=== PATIENT | male | born 1975 | race Caucasian/White ===

== ENCOUNTER 2016-08-27 04:47 | Emergency (ER) | payer BC ==
[~2016-08-27] VITALS: Ht 185.4 cm; Wt 95.5 kg
[2016-08-27 04:54] VITALS: TEMP 36.5; Ht 185.4 cm; Wt 95.5 kg
[2016-08-27] MEDS ORDERED: FENTANYL CITRATE INJ 50 MCG/1 ML 2 ML VIAL IV STA (05:05)
[2016-08-27] MEDS ORDERED: CALC500C50 PO (05:08)
--- NOTE | 2016-08-27 05:08 | EMERGENCY ROOM VISIT NOTE ---
History Report prepared by Chantel: Sonia Marsh Under the Supervision of: Dr. Hillary Woods D.O. First contact with patient: 04:54 Chief Complaint: ABDOMINAL PAIN Stated Complaint: HERNIA History of Present Illness The patient is a 41 year old male who presents to the Emergency Room with complaints of worsening abdominal pain beginning a few hours prior to arrival. The patient states that for the past few years he has had a hernia at his belly button. He states that he has never had an issue with the hernia. Tonight he had a coughing attack and after that he began to have abdominal pain. He notes tightness and an impacted feeling began. The patient denies any recent strenuous activity these past few days. The patient states that on occasion in the past he would have pain at the hernia site but it would quickly resolve and was not this painful. The patient has been having normal urinary symptoms. He notes trouble moving his bowels. Source of History: patient Onset: few hours HR INTERN Position: abdomen Timing: worsening Associated Symptoms: + cough, No urinary symptoms Note: The patient is experiencing trouble moving his bowels. Review of Systems See HPI for pertinent positives & negatives. A total of 10 systems reviewed and were otherwise negative. Past Medical & Surgical Medical Problems: (1) Hernia Family History Patient reports no known family medical history. Social History Alcohol Use: none Marital Status: in relationship Housing Status: lives with significant other Occupation Status: employed Current/Historical Medications Scheduled PRN Calcium Carbonate (Antacid) (Tums), 1 DOSE PO DIRECTED PRN for Indigestion Allergies Coded Allergies: No Known Allergies (Unverified , 08/27/16) Physical Exam Vital Signs Date Time Temp Pulse Resp B/P (MAP) Pulse Ox O2 Delivery O2 Flow Rate FiO2 08/27/16 06:04 78 18 140/72 94 08/27/16 04:54 36.5 85 20 154/99 92 Room Air Physical Exam General: Very uncomfortable appearing. Increased pain with any slight movement of abdomen. HEENT: Head - normocephalic and atraumatic Pupils are equal, round, and reactive to light. Extraocular eye muscles are intact, and sclera are anicteric. Nose - moist nasal mucosa without discharge. Mouth - moist buccal mucosa. Oropharynx is nonerythematous and there is no tonsillar exudate or edema noted. Neck: Supple; no JVD, nuchal rigidity, cervical lymphadenopathy. Heart: Tachycardic rate and regular rhythm. There is a normal S1 and S2 with no murmurs, clicks, or gallops appreciated. Lungs: Clear to auscultation bilaterally with no wheezes, rales, or rhonchi. Abdomen: Exquisite tenderness to the superior aspect of the umbilicus with obvious incarcerated hernia. Moderate guarding and rigidity just to the right of the umbilicus and right lower quadrant of the abdomen. Extremities: No evidence of cyanosis, clubbing, or edema. There are easily palpable peripheral pulses. Skin: warm and dry with good turgor and no rashes. Medical Decision & Procedures Laboratory Results 08/27/16 05:05 Red Blood Count 5.27, Mean Corpuscular Volume 89.8, Mean Corpuscular Hemoglobin 31.7, Mean Corpuscular Hemoglobin Concent 35.3, Mean Platelet Volume 11.1, Neutrophils (%) (Auto) 73.6, Lymphocytes (%) (Auto) 16.4, Monocytes (%) (Auto) 7.9, Eosinophils (%) (Auto) 1.4, Basophils (%) (Auto) 0.5, Neutrophils # (Auto) 6.70, Lymphocytes # (Auto) 1.49, Monocytes # (Auto) 0.72, Eosinophils # (Auto) 0.13, Basophils # (Auto) 0.05 08/27/16 05:05 Test 08/27/16 05:05 08/27/16 05:16 White Blood Count 9.11 K/uL (4.8-10.8) Red Blood Count 5.27 M/uL (4.7-6.1) Hemoglobin 16.7 g/dL (14.0-18.0) Hematocrit 47.3 % (42-52) Mean Corpuscular Volume 89.8 fL (80-100) Mean Corpuscular Hemoglobin 31.7 pg (25-34) Mean Corpuscular Hemoglobin Concent 35.3 g/dl (32-36) Platelet Count 204 K/uL (130-400) Mean Platelet Volume 11.1 fL (7.4-10.4) Neutrophils (%) (Auto) 73.6 % Lymphocytes (%) (Auto) 16.4 % Monocytes (%) (Auto) 7.9 % Eosinophils (%) (Auto) 1.4 % Basophils (%) (Auto) 0.5 % Neutrophils # (Auto) 6.70 K/uL (1.4-6.5) Lymphocytes # (Auto) 1.49 K/uL (1.2-3.4) Monocytes # (Auto) 0.72 K/uL (0.11-0.59) Eosinophils # (Auto) 0.13 K/uL (0-0.5) Basophils # (Auto) 0.05 K/uL (0-0.2) RDW Standard Deviation 43.1 fL (36.4-46.3) RDW Coefficient of Variation 13.2 % (11.5-14.5) Immature Granulocyte % (Auto) 0.2 % Immature Granulocyte # (Auto) 0.02 K/uL (0.00-0.02) Anion Gap 5.0 mmol/L (3-11) Est Creatinine Clear Calc Drug Dose 137.0 ml/min Estimated GFR () 128.8 Estimated GFR (Non- 111.2 BUN/Creatinine Ratio 16.4 (10-20) Calcium Level 9.0 mg/dl (8.5-10.1) Total Bilirubin 0.5 mg/dl (0.2-1) Direct Bilirubin < 0.1 mg/dl (0-0.2) Aspartate Amino Transf (AST/SGOT) 22 U/L (15-37) Alanine Aminotransferase (ALT/SGPT) 33 U/L (12-78) Alkaline Phosphatase 92 U/L (45-117) Total Protein 7.6 gm/dl (6.4-8.2) Albumin 4.3 gm/dl (3.4-5.0) Bedside Lactic Acid Venous 1.27 mmol/L (0.90-1.70) Laboratory results per my review. Medications Administered Medications (Trade) Dose Ordered Sig/Candy Route Start Time Stop Time Status Last Admin Dose Admin Fentanyl Citrate (Fentanyl Inj) 100 mcg NOW STAT IV 08/27/16 05:05 08/27/16 05:06 DC 08/27/16 05:12 100 MCG Procedure Medication ordered: Fentanyl Inj 100 mcg IV. ED Course 0455: Past medical records reviewed. The patient was evaluated in room B12. A complete history and physical exam was performed. An IV lock was initiated and labs are drawn as above. Lactic acid was obtained. 0505: Fentanyl Inj 100 mcg IV. 0524: The patient has complete resolution of his pain. The hernia has reduced itself. 0547: I reevaluated the patient and he is still comfortable. Instructed the patient on follow up with surgery and the importance of avoiding constipation. I also instructed him to hold his fist over his umbilicus when he has to cough or sneeze. 0556: Upon reevaluation, the patient is hemodynamically stable. I discussed findings and results with him. He verbalized agreement of the treatment plan. He was discharged home. Medical Decision The patient is a 41 year old male who presents to the ED with abdominal pain. Differential diagnosis includes small bowel obstruction, incarcerated hernia. Lab findings showed: no leukocytes, normal H&H, normal renal function and LFT. glucose 115, lactic acid 1.27. Blood Pressure Screening: Patient was found to have a slightly elevated blood pressure due to circumstances. I do not believe that the patient requires hypertension monitoring. The patient has had a long-standing umbilical hernia after an episode of coughing, the patient had severe pain noted in the abdomen around the umbilicus. On physical exam, the patient had evidence of an incarcerated umbilical hernia. The patient received 100 g of IV fentanyl and the hernia reduced itself. The patient is currently symptom-free. I have instructed him on how to avoid recurrent incarceration. I've also instructed him to follow up with general surgery for evaluation and elective repair. Impression Primary Impression: Incarcerated umbilical hernia Scribe Attestation The scribe's documentation has been prepared under my direction and personally reviewed by me in its entirety. I confirm that the note above accurately reflects all work, treatment, procedures, and medical decision making performed by me. Departure Information Dispostion Home / Self-Care Referrals No Doctor, Assigned (PCP) Patient Instructions My [facility]
[2016-08-27 05:21] LABS: BASO % 0.5 %; BASO ABS # 0.05 K/uL (0-0.2); COMPLETE YES; EOS % 1.4 %; HEMATOCRIT 47.3 % (42-52); IG% 0.2 %; LYMPH % 16.4 %; LYMPH ABS # 1.49 K/uL (1.2-3.4); MEAN CELL VOLUME 89.8 fL (80-100); MEAN CORPUSCULAR HEMOGLOBIN 31.7 pg (25-34); MEAN CORPUSCULAR HGB CONC 35.3 g/dl (32-36); MEAN PLATELET VOLUME 11.1 fL (7.4-10.4); MONO % 7.9 %; NEUT % 73.6 %; PLATELET COUNT 204 K/uL (130-400); RED BLOOD COUNT 5.27 M/uL (4.7-6.1); WHITE BLOOD COUNT 9.11 K/uL (4.8-10.8)
[2016-08-27 05:38] LABS: ALT/SGPT 33 U/L (12-78); AST/SGOT 22 U/L (15-37); BLOOD UREA NITROGEN 13 mg/dl (7-18); BUN/CREATININE RATIO 16.4 (10-20); CARBON DIOXIDE 28 mmol/L (21-32); CHLORIDE 109 mmol/L (98-107); CREATININE 0.81 mg/dl (0.60-1.40); GLUCOSE 115 mg/dl (70-99); POTASSIUM 4.1 mmol/L (3.5-5.1); SODIUM 142 mmol/L (136-145)
[2016-08-27 05:41] LABS: ALKALINE PHOSPHATASE 92 U/L (45-117)
[2016-08-27 06:04] VITALS: BP 140/72; PULSE 78; O2SAT 94
[2016-09-07] MEDS ORDERED: SENNTAB23 PO (13:49)
[2016-09-08] MEDS ORDERED: OXYC-57 PO (10:09)
== END 2016-08-27 06:05 | disposition home or self-care (01) ==
LOC: C.EDB 04:48
DX: K42.0 Umbilical hernia with obstruction, without gangrene (principal)

== ENCOUNTER 2016-09-08 07:02 | Day surgery (SDC) | payer BC ==
[2016-09-07 13:49] VITALS: BMI 28.0
[~2016-09-08] VITALS: Ht 185.4 cm; Wt 97.3 kg
[~2016-09-08 07:02] MED LIST: CEFAZOLIN 2000 MG/60 ML D5W IV SCH; LACTATED RINGER'S 1000ML 1,000 ML IV SCH; SENNTAB23 PO
[2016-09-08] MEDS ORDERED: MIDAZOLAM HCL 1 MG/ML 2ML VIAL ONE (07:06)
[2016-09-08 07:33] VITALS: BP 134/86; PULSE 70; TEMP 36.5; O2SAT 95; Ht 185.4 cm; Wt 97.3 kg
[2016-09-08] MEDS ORDERED: FENTANYL CITRATE INJ 50 MCG/1 ML 2 ML VIAL ONE (07:44)
[2016-09-08] MEDS ORDERED: ALBUTEROL 0.083% NEBU SOLN 3 ML VIAL INH STA (08:16)
--- NOTE | 2016-09-08 08:41 | History & Physical Bridge Note ---
H&P Re-Evaluation Bridge Note: I have examined the patient, reviewed the History & Physical and in the interval since the performance of the History & Physical I have noted the following changes of clinical significance: No changes noted
[2016-09-08] MEDS ORDERED: BUPIVACAINE 0.5 % 5 MG/1 ML MPF 30ML VIAL ONE (08:50)
[2016-09-08] MEDS ORDERED: BACITRACIN OINT 15 GM TUBE ONE (08:50)
[2016-09-08] MEDS ORDERED: LIDOCAINE HCL 1% 20 ML VIAL ONE (08:50)
[2016-09-08] MEDS ORDERED: LIDOCAINE HCL 2% 2 ML VIAL (20MG/ML) ONE (09:36)
[2016-09-08] MEDS ORDERED: PROPOFOL IV EMULSION 10 MG/ML 20 ML VIAL IV ONE (09:36)
[2016-09-08] MEDS ORDERED: GLYCOPYRROLATE INJ 0.2 MG/ML VIAL ONE ×2 (09:36→09:45)
[2016-09-08] MEDS ORDERED: ONDANSETRON INJ 2 MG/ML 2 ML VIAL ONE (09:36)
[2016-09-08] MEDS ORDERED: NEOSTIGMINE METHYLSULFATE 5 MG/5 ML SYR ONE (09:36)
[2016-09-08] MEDS ORDERED: DEXAMETHASONE SOD INJ 4 MG/ML VIAL ONE (09:36)
[2016-09-08] MEDS ORDERED: SUCCINYLCHOLINE 100MG/5ML SYR IV ONE (09:36)
[2016-09-08] MEDS ORDERED: ROCURONIUM BROMIDE 10 MG/ML 5 ML VIAL ONE (09:37)
[2016-09-08] MEDS ORDERED: LARYING-O-JET KIT (LTA) ONE ×2 (09:37)
[2016-09-08] MEDS ORDERED: SODIUM CHLORIDE 0.9% 1000ML 1,000 ML IV SCH (10:06)
--- NOTE | 2016-09-08 10:06 | [facility] Post Operative Brief Note ---
Immediate Operative Summary Operative Date Sep 08, 2016. Pre-Operative Diagnosis Incarcerated Umbilical Hernia Post-Operative Diagnosis Same as preoperative diagnosis. Procedure(s) Performed Umbilical hernia repair. Surgeon Dr. Murillo [employer] Surgeon(s) Dr. Gama Estimated Blood Loss 5ml Findings incarcerated umbilical hernia, the hernia neck size is 0.8cm x0.8cm, Fluids (cc crystalloids) 500ml Specimens A. Umbilical hernia sac Drains none Anesthesia general Complication(s) None Disposition Recovery Room / PACU
[2016-09-08] MEDS ORDERED: OXYC-57 PO (10:09)
--- NOTE | 2016-09-08 10:12 | Discharge Instructions ---
Discharge Instructions Date of Service Sep 08, 2016. Visit Reason for Visit: Umbilical Hernia Discharge Discharge Diagnosis / Problem: S/P open repair umbilical hernia Discharge Goals Goal(s): Decrease discomfort, Improve function Activity Recommendations Activity Limitations: per Instructions/Follow-up section Lifting Limitations: no more than 25 pounds Exercise/Sports Limitations: gradually increase as tolerated May Resume Sexual Activity: when tolerated Shower/Bathe: may shower/bathe in 3 days Driving or Machine Use: resume 3 days after discharge Anesthesia . Post Anesthesia Instructions: If you have had General Anesthesia or IV Sedation: * Do not drive today. * Resume driving when surgeon permits. * Do not make important decisions or sign legal documents today. * Call surgeon for: 1. Temperature elevations greater than 101 degrees F. 2. Uncontrollable pain. 3. Excessive bleeding. 4. Persistent nausea and vomiting. 5. Medication intolerance (nausea, vomiting or rash). * For nausea and vomiting use only clear liquids such as: tea, soda, bouillon until nausea subsides, then gradually increase diet as tolerated. * If you have any concerns or questions, call your surgeon's office. If physician is unavailable and it is an emergency, call 911 or go to the nearest emergency room. . Instructions / Follow-Up Instructions / Follow-Up keep the dressing on for 4 days, he can take a shower on 09/12/2016, follow up me 1 week, no driving while taking pain medicine, Diet Recommendations Recommended Home Diet: resume previous diet Procedures Procedures Performed: Umbilical hernia repair. Pending Studies Studies pending at discharge: no Medical Emergencies . Who to Call and When: Medical Emergencies: If at any time you feel your situation is an emergency, please call 911 immediately. . Non-Emergent Contact Non-Emergency issues call your: Surgeon Call Non-Emergent contact if: you have a fever, temperature is above 100.5, your pain is not controlled, your pain is worsening, wound has increased drainage, wound has increased redness . . "Provider Documentation" section prepared by Leslie Murillo. . [place] Drug Monitoring Program Search Results: no issues identified
[2016-09-08] MEDS ORDERED: HYDROCODONE/ACETAMOPHEN 5/325MG TAB PO PRN (10:15)
[2016-09-08] MEDS ORDERED: OXYCODONE/ACETAMINOPHEN 5-325 TAB PO PRN (10:15)
[2016-09-08] MEDS ORDERED: ONDANSETRON INJ 2 MG/ML 2 ML VIAL IV PRN ×2 (10:15→10:30)
[2016-09-08] MEDS ORDERED: HYDROmorphone INJ 1 MG/ML SYR ONE ×2 (10:21→10:54)
[2016-09-08] MEDS ORDERED: EpHEDrine SULFATE INJ 50 MG/ML AMP IV PRN (10:30)
[2016-09-08] MEDS ORDERED: PROMETHAZINE HCL INJ 12.5 MG in SODIUM CHLORIDE 0.9% 50ML 50 ML IV PRN (10:30)
[2016-09-08] MEDS ORDERED: HYDROmorphone INJ 1 MG/ML SYR IV PRN (10:30)
[2016-09-08] MEDS ORDERED: LABETALOL HCL IV 5 MG/ML 20ML IV PRN (10:30)
[2016-09-08] MEDS ORDERED: ATROPINE SULFATE 0.1 MG/ML 5ML SYR IV PRN (10:30)
--- NOTE | 2016-09-08 10:45 | OPERATIVE REPORT ---
DATE OF OPERATION: 09/08/2016 PREOPERATIVE DIAGNOSIS: Incarcerated umbilical hernia. POSTOPERATIVE DIAGNOSIS: Same. OPERATION: Open repair of umbilical hernia. SURGEON: Dr. Leslie Murillo M.D. CLINICAL APPEALS SPECIALIST: Dr. Jannie Gama M.D. ANESTHESIA: General. ESTIMATED BLOOD LOSS: About 5 mL. FINDINGS: Incarcerated umbilical hernia. COMPLICATIONS: None. INDICATIONS FOR THE PROCEDURE: This is a 41-year-old gentleman who had umbilical area pain with bulging. The patient went to the ER last week and diagnosed with incarcerated umbilical hernia. The patient will be required to do open repair of umbilical hernia, possible mesh. I did talk to the patient about the benefit and risk, alternate procedure. I indicated the risks may include but not limited such as bleeding, infection, hernia recurrence, may need more procedure. The patient understands. He signed informed consent and I answered all questions. DETAILS OF PROCEDURE: We brought the patient to the OR, put the patient in the supine position. The patient received SCD on bilateral legs to prevent DVT. Also, the patient received 2 grams Ancef IV for prophylactic antibiotic. The patient received general anesthesia without difficulty. The abdomen was prepped and draped in routine sterile fashion. After time out we injected the local anesthesia by using 1% lidocaine mixed with 0.5% Marcaine just above umbilical area. Then we made a small incision just above umbilical, mobilized the umbilical we found the patient had a large hernia sac, but a small hernia neck. At this moment, we mobilized the hernia sac, amputated the hernia sac, rechecked no active bleeding. The hernia neck size about 0.8 x 0.8 cm. We decided to repair the hernia by using #1 Ethibond suture [id number] x2 without mesh. Recheck the hernia, fixed nicely and then we reattached umbilical back to original location by using 2-0 Vicryl. Hemostasis was obtained. Then I used 2-0 Vicryl to close subcutaneous layer, interrupted and closed skin by using 4-0 Vicryl. We put the dressing on. The patient tolerated the procedure well and was transferred to recovery room in stable condition. All the instrument, needle and sponge count correct x2 at the end of case and the hernia sac sent to pathology. After the procedure, I did talk to the patient's family member about the OR finding and procedure we did, they understand. I attest to the content of the Intraoperative Record and any orders documented therein. Any exceptions are noted below. MTDD
[2016-09-08 11:25] VITALS: BP 124/60; PULSE 52; TEMP 36.6; O2SAT 94
--- NOTE | 2016-09-08 11:34 | Anesthesiology Progress Note ---
Anesthesia Post Op Note Date & Time Sep 08, 2016 at 11:34 Vital Signs Pain Intensity: 3 Vital Signs Past 12 Hours Date Time Temp Pulse Resp B/P (MAP) Pulse Ox O2 Delivery O2 Flow Rate FiO2 09/08/16 11:03 63 18 09/08/16 11:03 67 18 94 09/08/16 11:01 107/76 09/08/16 11:00 36.7 61 16 116/77 94 Nasal Cannula 2 09/08/16 10:58 62 13 09/08/16 10:58 63 13 94 09/08/16 10:57 64 21 09/08/16 10:57 64 21 95 09/08/16 10:56 116/75 09/08/16 10:52 66 12 09/08/16 10:52 68 12 94 09/08/16 10:51 114/77 09/08/16 10:47 65 11 09/08/16 10:47 65 11 94 09/08/16 10:46 118/79 09/08/16 10:42 69 17 09/08/16 10:42 68 17 95 09/08/16 10:41 123/80 09/08/16 10:37 66 21 09/08/16 10:37 68 21 96 09/08/16 10:36 63 17 115/76 98 09/08/16 10:36 62 17 09/08/16 10:31 56 9 09/08/16 10:31 56 9 122/84 98 09/08/16 10:27 116/65 09/08/16 10:26 69 18 98 09/08/16 10:26 68 18 09/08/16 10:21 66 11 122/81 98 09/08/16 10:21 66 11 09/08/16 10:16 84 13 09/08/16 10:16 85 13 132/80 99 09/08/16 10:12 144/83 09/08/16 10:11 36.6 86 16 144/83 97 Mask 10 09/08/16 07:33 36.5 70 18 134/86 (102) 95 Room Air Notes Mental Status: alert / awake / arousable, participated in evaluation Pt Amnestic to Procedure: Yes Nausea / Vomiting: adequately controlled Pain: adequately controlled Airway Patency, RR, SpO2: stable & adequate BP & HR: stable & adequate Hydration State: stable & adequate Anesthetic Complications: no major complications apparent
[2016-09-08 11:55] VITALS: BP 106/75; PULSE 61; O2SAT 93
[2016-09-08] MEDS ORDERED: OXYCODONE/ACETAMINOPHEN 5-325 TAB ONE (11:58)
[2016-09-08 12:25] VITALS: BP 106/75; PULSE 75; TEMP 36.7; O2SAT 94
[2016-09-09] MEDS ORDERED: CEFAZOLIN IV 2,000 MG/60 ML D5W IV ONE (06:00)
== END 2016-09-08 12:45 | disposition home or self-care (01) ==
LOC: C.ACU 07:02
PROVIDERS: ATTEND Surgery
DX: K42.9 Umbilical hernia without obstruction or gangrene (principal); F17.200 Nicotine dependence, unspecified, uncomplicated; K21.9 Gastro-esophageal reflux disease without esophagitis; E66.9 Obesity, unspecified